=== PATIENT | female | born 1950 | race Caucasian/White ===

== ENCOUNTER → 2017-03-04 | Outpatient (CLI) | payer OTHER, MEDICARE | LOC: FIMAGING 12:06 | PROVIDERS: ATTEND Surgery | DX: Z12.31 Encounter for screening mammogram for malignant neoplasm of breast (principal); Z86.000 Personal history of in-situ neoplasm of breast | CPT/HCPCS: G0202 ==

== ENCOUNTER → 2017-04-23 | Outpatient (CLI) | payer OTHER, MEDICARE | LOC: BRMIMAGING 13:40 | PROVIDERS: ATTEND Internal Medicine | DX: Z13.820 Encounter for screening for osteoporosis (principal); M81.0 Age-related osteoporosis without current pathological fracture ==

== ENCOUNTER → 2018-04-08 | Outpatient (CLI) | payer OTHER, MEDICARE | LOC: FIMAGING 10:01 | PROVIDERS: ATTEND Surgery | DX: R92.8 Other abnormal and inconclusive findings on diagnostic imaging of breast (principal) ==